=== PATIENT | female | born 2000 | race Caucasian/White ===

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

== ENCOUNTER 2022-06-28 19:24 | Emergency (ER) | payer OTHER, SELFPAY ==
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
[2022-06-28 19:36] VITALS: BP 123/66; PULSE 90; BMI 21.1
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
[2022-06-28] MEDS: Acetaminophen 325 MG TABLET 975 MG PO (20:24)
[2022-06-28] MEDS: Bacitracin Oint 14 GM TUBE 1 APPL TOPICAL (20:25)
[2022-06-28] MEDS: Ibuprofen 600 MG TABLET PO (20:25)
[2022-06-28 21:05] VITALS: BP 125/78; PULSE 85; RESP 18; TEMP 36.8; O2SAT 98
== END 2022-06-28 21:54 | disposition home or self-care (01) ==
PROVIDERS: Emergency Provider Emergency Medicine
DX: S80.11XA Contusion of right lower leg, initial encounter (principal); M25.561 Pain in right knee; V43.62XA Car passenger injured in collision with other type car in traffic accident, initial encounter; Y93.9 Activity, unspecified; Y92.410 Unspecified street and highway as the place of occurrence of the external cause; Y99.9 Unspecified external cause status
CPT/HCPCS: 73562; 73590; 99283; 99284

== ENCOUNTER 2023-05-21 11:34 | Emergency (ER) | payer OTHER, SELFPAY ==
--- NOTE | ~2023-05-21 | XR_ITS ---
EXAMINATION: XR SHOULDER, RIGHT CLINICAL INFORMATION: Pain COMPARISON: None available. TECHNIQUE: Three views of the right shoulder. FINDINGS: Humeral head is well-seated in the glenoid fossa. No acute fracture or dislocation seen. Small amount of calcification seen along the superior aspect of the humeral head region of the supraspinatus tendon suggesting a component of calcific tendinitis. Normal-appearing acromioclavicular joint space. Visualized right ribs and chest unremarkable. XR/XR shoulder RT min 2V IMPRESSION: No acute fracture or dislocation. Small amount of calcification along the superior aspect of the humeral head suggesting calcific tendinitis.
--- NOTE | ~2023-05-21 | XR_ITS ---
EXAMINATION: PORTABLE CHEST 1 VIEW CLINICAL INFORMATION: clavicle hit bar. pain. fracture?. COMPARISON: No recent pertinent prior studies are available for comparison. TECHNIQUE: Portable frontal view of the chest was obtained. FINDINGS: The lungs are well expanded. No focal infiltrate, effusion, edema, or pneumothorax. Cardiac and mediastinal silhouettes are within normal limits for technique. No acute bony abnormality seen. XR/XR chest 1V IMPRESSION: No evidence of acute disease.
[2023-05-21 11:56] VITALS: BP 120/70; PULSE 81; RESP 16; TEMP 36.6; O2SAT 96; BMI 32.9
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
[2023-05-21 15:57] VITALS: BP 130/79; PULSE 74; RESP 16; TEMP 37.2; O2SAT 99
[2023-05-21] MEDS: Ketorolac Tromethamine 30 MG/ML VIAL IM (15:57)
== END 2023-05-21 16:00 | disposition home or self-care (01) ==
PROVIDERS: Emergency Provider Student in an Organized Health Care Education/Training Program
DX: M25.511 Pain in right shoulder (principal); R07.89 Other chest pain; Z79.899 Other long term (current) drug therapy
CPT/HCPCS: 71045; 73030; 96372; 99284; J1885

== ENCOUNTER 2023-05-31 13:50 | Outpatient (AMB) | payer OTHER, SELFPAY ==
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
[2023-05-31 13:58] VITALS: BMI 32.9
== END 2023-05-31 14:11 | disposition home or self-care (01) ==
PROVIDERS: Visit Provider Orthopaedic Surgery
DX: M25.511 Pain in right shoulder (principal)
CPT/HCPCS: 99202

== ENCOUNTER → 2023-05-31 13:50 | Outpatient (BNVA) | payer OTHER, SELFPAY | PROVIDERS: Visit Provider Orthopaedic Surgery | DX: M25.511 Pain in right shoulder (principal) | CPT/HCPCS: 99202 ==

== ENCOUNTER 2025-03-06 18:03 | Emergency (ER) | payer OTHER, SELFPAY ==
--- NOTE | ~2025-03-06 | XR_ITS ---
CLINICAL HISTORY: left knee pain Three views of the left knee. COMPARISON: None provided. FINDINGS: Moderate suprapatellar joint effusion. Joint spaces are maintained. Visualized portions of the distal femur, patella, and proximal tibia and fibula appear intact. IMPRESSION: 1. Moderate left suprapatellar joint effusion. This document has been electronically signed by: Gurwinder Muñoz MD on 03/06/2025 18:45:15
--- NOTE | ~2025-03-06 | MR_ITS ---
CLINICAL HISTORY: injury left knee, ACL tear MRI left knee without contrast Comparison: None provided Findings: Full-thickness tear of the ACL noted with retraction. Large joint effusion is also identified. Heterogeneous fluid noted adjacent to the PCL. Quadriceps and patellar tendons intact without tear. Patellar cartilage and retinacula are unremarkable. Complex tear posterior horn medial meniscus. Abnormal signal noted both horns of lateral meniscus. Question degenerative versus minimal tear. No acute bony signal abnormality. Impression: Full-thickness retracted tear of the ACL Complex tear posterior horn medial meniscus Question degenerative signal versus tear of lateral meniscus This document has been electronically signed by: Alexei Leong MD on 03/06/2025 21:17:53
--- NOTE | ~2025-03-06 | CT_ITS ---
CLINICAL HISTORY: s p knee dislocation, R O l popliteal a. Dissecti CT angiogram left leg with contrast Multiplanar reconstructions and 3D processing Comparison: None provided Findings: Imaging begins in the proximal thigh. Visualized superficial femoral artery is patent. Left popliteal artery is also patent. Proximal trifurcation vessels patent in upper calf. Mid and distal trifurcation vessels are not opacified. This may be due to contrast timing issue or vessel injury. Moderate knee joint effusion is noted. No acute bony abnormality identified. Impression: Study limited to mid thigh through ankle SFA and popliteal artery patent without abnormality Trifurcation vessels patent proximally in upper calf Mid and distal trifurcation vessels are unopacified This document has been electronically signed by: Alexei Leong MD on 03/06/2025 23:19:57
[2025-03-06 18:08] VITALS: BP 132/57; PULSE 92; RESP 16; TEMP 36.4; O2SAT 96; BMI 34.5
--- NOTE | 2025-03-06 18:13 | ED_ITS ---
HPI - General Adult General Chief complaint: Extremity Injury, Lower Stated complaint: ? torn ACL Time Seen by Provider: 03/06/25 19:57 Source: patient Mode of arrival: ambulatory Limitations: no limitations History of Present Illness ED Provider: DR. Alba HPI narrative: 24-year-old female came in for evaluation of left knee injury last night, patient was wrestling with her friends when she twisted her left knee patient felt a sudden onset of severe left knee pain heard the pop and she fell down, patient confirmed that she felt the knee was dislocated then was reduced spontaneously, patient is unable to bear weight on her left knee. Related Data Previous Rx's ?Medication ?Instructions ?Recorded acetaminophen 325 mg capsule 650 mg (2 x 325 mg) PO Q6 H PRN 05/21/23 (Tylenol) pain #30 caps ibuprofen 600 mg tablet 600 mg PO Q6H PRN pain #45 t abs 05/21/23 acetaminophen 500 mg tablet 500 mg PO Q6H PRN pain #20 tabs 03/06/25 ibuprofen 800 mg tablet 800 mg PO Q8H PRN pain #20 t abs 03/06/25 tramadol 50 mg tablet 50 mg PO BID PRN pain #8 tab s 03/06/25 Allergies Allergy/AdvReac Type Severity Reaction Status Date / Time No Known Allergies Allergy Verified 03/06/25 18:11 Review of Systems 2 Review of Systems: All other systems are reviewed and are negative Constitutional: Reports as per HPI and Reports no additional constitutional complaints Eyes: Reports as per HPI and Reports no additional eye complaints Reports system reviewed and no additional complaints, except as documented Cardiovascular: Reports as per HPI and Reports no additional cardiovascular complaints Respiratory: Reports as per HPI and Reports no additional respiratory complaints Gastrointestinal: Reports as per HPI and Reports no additional gastrointestinal complaints Genitourinary: Reports no additional female genitourinary complaints Musculoskeletal: Reports no additional musculoskeletal complaints Skin/Breast: Reports system reviewed and no additional complaints, except as docu Psychiatric: Reports no additional psychiatric complaints Endocrine: Reports no additional endocrine complaints Hematologic/Lymphatic: Reports no additional hematologic/lymphatic complaints Allergic/Immunologic: Reports no additional allergic/immunologic complaints Reports system reviewed and no additional complaints, except as documented and Reports Abnormal speech present [facility] Family History Family History Mother No problems noted. Father No problems noted. Son No problems noted. Sister No problems noted. Sister No problems noted. Brother No problems noted. Brother No problems noted. Brother No problems noted. Brother No problems noted. Social History Social History Patient Tobacco Use Status: Never used Tobacco Smoked in Last 30 Days: No Use of substances other than those prescribed or required for medical reasons: No Advance Directives: No Advance Directives Information Provided: No Do you have a plan to hurt others: No Plan Patient : No Physical Exam ED Vital Signs: Vital Signs - 24 hr 03/06/25 18:08 03/06/25 20:13 03/06/25 22:00 Temperature 97.6 F 98.5 F 97.8 F Pulse Rate 92 84 77 Respiratory Rate 16 16 16 Blood Pressure 132/57 L 104/61 131/86 Pulse Oximetry 96 100 98 Oxygen Delivery Method Room Air Room Air Room Air 03/07/25 00:28 03/07/25 00:30 Temperature 98.7 F 98.7 F Pulse Rate 81 81 Respiratory Rate 16 16 Blood Pressure 114/76 114/76 Pulse Oximetry 97 97 Oxygen Delivery Method Room Air Room Air BMI result Body Mass Index 34.5 Vital signs have been reviewed and appear to be correct. Blood pressure elevated. Heart rate normal. Respiratory rate normal. Temperature normal. Oxygen saturation normal. Appearance: Alert. Oriented X3. No acute distress. Head: Normal external exam. Normocephalic. Atraumatic. No Telles signs noted. No raccoon eyes noted Eyes: PERRLA. EOMI. Conjunctiva and sclera normal. Eyelids normal. ENT: TM's Normal. Pharynx normal. Uvula midline. Moist mucous membranes. No trismus noted. No drooling noted. No muffled voice noted. Neck: Normal inspection. Neck supple. FROM. No adenopathy. Thyroid Normal. No meningeal signs. No neck mass noted. CVS: Normal heart rate and rhythm. Heart sound normal. No murmurs noted. Pulses normal throughout. Respiratory: No respiratory distress. Painless inspiration. Breath sounds normal. No wheezes/rales/rhonchi noted. Chest nontender. No accessory muscle usage noted or decreased air movement noted. Abdomen: Soft and nontender. Bowel sounds normal in all 4 quadrants. No distention noted. No organomegaly noted. No visible injury noted. Back: No CVA tenderness. Full range of motion noted. Skin: Skin warm and dry. Normal skin color. Normal skin turgor. No rashes/lesions/lacerations noted. Extremities: Left knee exam: Unstable anterior drawer test, +left popliteal artery, + left PT/DP, sensation is intact to the knee and distal left leg, severe pain around the knee with mild swelling. Neuro: Oriented X 3. Cranial nerve exam: II-XII are grossly intact No motor deficit. No sensory deficit. Reflexes normal. Course Course Course Narrative: RME: 24-year-old female presents to ED for left knee pain since last night. Patient heard a pop in her left knee cyst in her not being able to bear weight on left knee. Positive for knee tenderness on palpation. X-ray ordered Reevaluation(s) Reevaluation #1: Left knee injury. Concern of ACL injury patient will get MRI of the left knee. Possible left knee dislocation which raised the concern of left popliteal artery dissection patient will get left lower extremity angiogram. Case signed out to Dr. Cheek Time: 21:02 Medications Administered Discontinued Medications Generic Name Dose Route Start Last Admin Trade Name Freq PRN Reason Stop Dose Admin Ibuprofen 800 mg 03/06/25 19:53 03/06/25 21:16 Ibuprofen 800 Mg Tablet PO 03/06/25 19:54 800 mg ONCE ONE Administration Iohexol 95 ml 03/06/25 22:22 03/06/25 22:23 Iohexol 350 Mg/Ml 100 Ml Infus..Btl IV 03/06/25 22:23 95 ml ONCE ONE Administration Medical Decision Making Medical Decision Making [facility] Narrative: I received sign-out from my colleague Dr. Alba - patient already has a knee brace and crutches - CT angiogram of the left leg is limited from the mid thigh through ankle. SFA and popliteal artery patent without abnormality, mid and distal trifurcation vessels are unopacified - MRI of the left knee shows a full-thickness retracted tear of the ACL in a complex tear posterior horn medial meniscus, question degenerative signal versus tear of lateral meniscus - I discussed with the patient that it is very likely that she will need surgery. Patient will be discharged home and she can follow-up with orthopedics referral has been placed - a prescription for ibuprofen and tramadol will be sent to the patient's pharmacy. I discussed with the patient the risks of using narcotics. Differential Diagnosis Differential Diagnoses: The differential diagnosis associated with the presentation includes (Left knee dislocation, left knee fracture, ligamentous injury, lower extremity vascular injury.) Admission/Observation Consideration of admission/observation: Escalation of care including admission/observation considered Lab Data MDM Lab Attestation statement: I reviewed the patient's lab results. 03/06/25 21:23 Labs: Lab Results 03/06/25 Range/Units 21:23 Sodium 141 (135-145) mmol/L Potassium 4.4 (3.3-5.1) mmol/L Chloride 106 (96-108) mmol/L Carbon Dioxide 27 (22-29) mmol/L Anion Gap 12 (12-20) BUN 14 (9-16) mg/dL Creatinine 0.68 (0.5-1.4) mg/dL Estim Creat Clear Calc 157.4 Estimated GFR > 60 Random Glucose 90 (60-115) mg/dL Calcium 9.0 (8.4-10.2) mg/dL Beta HCG, Quant < 2 mIU/mL Independent Interpretation I performed an independent interpretation of an: CT Scan and MRI Radiology Impression Discussion of test interpretation with radiology: I have reviewed the radiologist's reading. Radiologist Impression: Imaging begins in the proximal thigh. Visualized superficial femoral artery is patent. Left popliteal artery is also patent. Proximal trifurcation vessels patent in upper calf. Mid and distal trifurcation vessels are not opacified. This may be due to contrast timing issue or vessel injury. Moderate knee joint effusion is noted. No acute bony abnormality identified. Impression: Study limited to mid thigh through ankle SFA and popliteal artery patent without abnormality Trifurcation vessels patent proximally in upper calf Mid and distal trifurcation vessels are unopacified MRI: Full-thickness tear of the ACL noted with retraction. Large joint effusion is also identified. Heterogeneous fluid noted adjacent to the PCL. Quadriceps and patellar tendons intact without tear. Patellar cartilage and retinacula are unremarkable. Complex tear posterior horn medial meniscus. Abnormal signal noted both horns of lateral meniscus. Question degenerative versus minimal tear. No acute bony signal abnormality. Impression: Full-thickness retracted tear of the ACL Complex tear posterior horn medial meniscus Question degenerative signal versus tear of lateral meniscus Critical Care Time Critical Care Time Critical Care Time: Yes Total Critical Care Time: 35 Attestation: I have personally provided critical care time. Time includes review of lab data, radiology results, discussion with consultants, and monitoring for potential decompensation. Intervention performed as documented. Discharge Plan Discharge Clinical Impression: Injury of knee, left, Complete tear of anterior cruciate ligament of left knee, Acute medial meniscal tear Patient Disposition: Home, Self-Care Instructions: Crutch Instructions (ED) Additional Instructions: Please follow-up with your primary care physician tomorrow. If you have any worsening or new symptoms, please return to the emergency room or call 911 Prescriptions: New tramadol 50 mg tablet 50 mg PO BID PRN (Reason: pain) Qty: 8 0RF ibuprofen 800 mg tablet 800 mg PO Q8H PRN (Reason: pain) Qty: 20 0RF acetaminophen 500 mg tablet 500 mg PO Q6H PRN (Reason: pain) Qty: 20 0RF No Action ibuprofen 600 mg tablet 600 mg PO Q6H PRN (Reason: pain) Qty: 45 0RF acetaminophen [Tylenol] 325 mg capsule 650 mg PO Q6H PRN (Reason: pain) Qty: 30 0RF Referrals: Emeka Juan MD [Physician, Orthopedics] Interventions: ED Discharge Assessment Last Done: 03/07/25 00:30 Discharge Date/Time: 03/07/25 00:30 Print Language: Cymraes
[2025-03-06 20:13] VITALS: BP 104/61; PULSE 84; RESP 16; TEMP 36.9; O2SAT 100
[2025-03-06 21:48] LABS: Anion Gap 12 (12-20); Blood Urea Nitrogen 14 mg/dL (9-16); Calcium 9.0 mg/dL (8.4-10.2); Carbon Dioxide 27 mmol/L (22-29); Chloride 106 mmol/L (96-108); Creatinine Clr Calc Pharmacy 157.4; Estimated Glomerular Filt Rate > 60; Potassium 4.4 mmol/L (3.3-5.1); Sodium 141 mmol/L (135-145)
[2025-03-06 22:00] VITALS: BP 131/86; PULSE 77; RESP 16; TEMP 36.6; O2SAT 98
[2025-03-06] MEDS: iohexoL 350 MG/ML 100 ML INFUS..BTL 95 ML IV (22:23)
[2025-03-07 00:28] VITALS: BP 114/76; PULSE 81; RESP 16; TEMP 37.1; O2SAT 97
--- NOTE | 2025-03-07 00:29 | PC.NURSE ---
Knee immobilizer applied to the left knee. Pt tolerated well. Crutch training provided with effective teach back demonsration.
[2025-03-07 00:30] VITALS: BP 114/76; PULSE 81; RESP 16; TEMP 37.1; O2SAT 97
== END 2025-03-07 00:30 | disposition home or self-care (01) ==
PROVIDERS: Emergency Medicine; Emergency Provider Emergency Medicine; PCP Internal Medicine
DX: S83.512A Sprain of anterior cruciate ligament of left knee, initial encounter (principal); S83.242A Other tear of medial meniscus, current injury, left knee, initial encounter; M25.562 Pain in left knee; X50.1XXA Overexertion from prolonged static or awkward postures, initial encounter; X50.3XXA Overexertion from repetitive movements, initial encounter; Y93.9 Activity, unspecified; Y92.9 Unspecified place or not applicable; Y99.8 Other external cause status
CPT/HCPCS: 36415; 73564; 73706; 73721; 80048; 84702; 99284; Q9967

== ENCOUNTER → 2025-03-06 18:12 | Outpatient (BNV) | payer OTHER, SELFPAY | PROVIDERS: Visit Provider Radiology Diagnostic Radiology | DX: S83.512A Sprain of anterior cruciate ligament of left knee, initial encounter (principal); M25.462 Effusion, left knee | CPT/HCPCS: 73564; 73706; 73721 ==

== ENCOUNTER 2025-03-21 13:06 | Outpatient (AMB) | payer OTHER, SELFPAY ==
--- OUTSIDE RECORDS SUMMARY | 2025-03-21 13:08 | XMS_ITS | Encounter Summary ---
Author Organization [facility] Address [address] [place] [id number] Phone Care Team Providers Care Chest Painting Leader Name Role Phone Naye Bull NP Primary Care Provider [phone] Encounter Details Date Type Department Care Team (Late st Contact Info) Description 06/20/[address] [facility] Family Medicine [address] [place] [address] Family Medicine, Physician [address] [place] [address] Social History Tobacco Use Types Packs/Day Years Used Date Smoking Tobacco: Never Assessed Comments Unknown Sex and Gender Information Value Date Recorded Sex Assigned at Not on file Legal Sex Female 4:46 PM EDT Gender Identity Not on file Sexual Orientation Not on file documented as of this encounter Plan of Treatment Not on file documented as of this encounter Visit Diagnoses Not on filedocumented in this encounter Care Teams Chest Painting Leader Relationship Specialty Start Date End Date Naye Bull NP PCP - General 04/14/17 08/16/23 documented as of this encounter
--- OUTSIDE RECORDS SUMMARY | 2025-03-21 13:09 | XMS_ITS | Clinical Summary ---
Author Organization [facility] ity Address [address] [place] [address] Care Team Providers Care Mass Communications Instructor Name Role Phone Karla Bond MD Primary Care Provider [phone] Allergies No known active allergies Medications drospirenone-et hinyl estradioL (OCELLA,JOANN,Y ASMIN) 3-0.03 mg per tablet Take 1 tablet by mouth 1 (one) time each day. 08/31/2023 Active hydrOXYzine pamoate (VISTARIL) 25 mg capsule Take 1 Capsule by mouth 4 times daily as needed for Anxiety. 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 Immunizations Name Administration Dates Next Due DTaP (Infanrix) 6wks to less than 7yo ,04/19/2004,01/21/2003,12/02,2002 JUgW-HGV-SLV (Pentacel) 2mo to less than 5yo 04/19/2004,01/21/2003,2002,09/16 H1N1 Inj Preservative Free 12/16/2009,10/15/2009 HPV 9-valent (Gardisil) 9yo to less than 46yo 09/30/2015 HPV, Quadrivalent 09/29/2014,09/25/2013 Hepatitis B Pediatric (Enger ix B; Recombivax HB) to less than 20 yo 04/28/2003,01/21/2003,2002 IPV Inactivated polio (Ipol) 6wks and older 05/09/2007,04/28/2003,2002,09/16 Influenza trivalent, 0.5mL, preservative free (Fluarix; FluLaval; Fluzone) ages 6mo and older (Afluria) 3 years and older 09/30/2015,09/29/2014 Influenza trivalent, with pr eservative (Fluzone; Afluria) 6mo and older 09/25/2013,06/03/2009,08/15/2008,06/03 Influenza, live, intranasal, trivalent (FluMist) 2yo to less than 50yo 06/07/2010 MMR, measles mumps and rubel la Live (Priorix; M-M-R II) 12mo and older 09/17/2003 MMRV, measles mumps rubella and varicella live (Proquad) 4yo to less than 7yo 05/09/2007 Meningococcal MCV4P 09/25/2013 Pneumococcal Conjugate Vacci ne, 7 Valent 10/13/2004,01/21/2003,2002,09/16 Tdap Tetanus diptheria acell ular pertussis (Boostrix; Adacel) 7yo and older 12/24/2020,09/25/2013 Varicella live (Varivax) 12m o and older 02/22/2021,09/17/2003 Surgical History Surgery Date Site/Laterality Comments OTHER SURGICAL HISTORY 02/23/2023 PROCEDURE: ME PLASTIC SURGERY SS; COMMENT: [facility] Medical History Medical History Date Comments Headache DX:Headache; COM MENT: saw optho,normal exam on 06/12/14, neg CT scan 10/2009 RAD (reactive airway disease) DX :RAD (reactive airway disease) Mononucleosis DX:Mononucleosis ; COMMENT: History of per labs 10/21 Depression DX:Depression Family History Medical History Relation Name Comments Asthma Father Diabetes Maternal Grandfather Migraines Mother Breast cancer Neg Hx Cervical cancer Neg Hx Ovarian cancer Neg Hx Uterine cancer Neg Hx Relation Name Status Comments Father Alive Maternal Grandfather Alive Maternal Grandmother Alive Mother Alive Paternal Grandfather Paternal Grandmother Alive Social History Tobacco Use Types Packs/Day Years Used Date Smoking Tobacco: Never Smokeless Tobacco: Never Alcohol Use Standard Drinks/Week Comments No 0 (1 standard drink = 0.6 oz pur e alcohol) Comments Unknown Sex and Gender Information Value Date Recorded Sex Assigned at Not on file Legal Sex Female 1:18 PM EST Gender Identity Not on file Sexual Orientation Not on file Obstetrics History Last Filed Vital Signs Vital Sign Reading Time Taken Comments Blood Pressure 100/60 10/09/2023 11:03 AM EST Pulse 98 10/09/2023 11:03 AM EST Temperature - - Respiratory Rate - - Oxygen Saturation - - Inhaled Oxygen Concentration - - Weight 119 kg (263 lb) 10/09/2023 11:03 AM EST Height 167.6 cm (5' 6 ) 10/09/2023 11:03 AM EST Body Mass Index 42.45 10/09/2023 11:03 AM EST Plan of Treatment Health Maintenance Due Date Last Done Comments Meningococcal B Vaccine (1 of 2 - Standard) 2018 Cholesterol Screening (Lipid Panel) 08/02/2022 Depression Screening 08/02/2022 Social Influencers of Health Screening 08/02/2022 Gonorrhea/Chlamydia Screening 09/28/2022 09/28/2021 Cervical Cancer Screening: Pap Smear 2023 COVID-19 Vaccine ( season) 2024 04/07/2021, 03/15/2021 Influenza Vaccine (#1) 2025 6, 09/29/2014, 09/25/2013, Additional history exists DTaP,Tdap,and Td Vaccines (8 - Td or Tdap) 12/24/2030 12/24/2020, 09/25/2013, 05/09/2007, Additional history exists Hepatitis B Vaccines Completed 04/28/2003, 01/21/2003, 2002 HIB Vaccines Completed 04/19/2004, 01/03, 2002, Additional history exists Pneumococcal Vaccine: Pediatrics (0 to 5 Years) and At-Risk Patients (6 to 49 Years) Completed 10/13/2004, 01/21/2003, 2002, Additional history exists IPV Vaccines Completed 05/09/2007, 04/04, 04/28/2003, Additional history exists MMR Vaccines Completed 05/09/2007, 09/17/2003 Meningococcal ACWY Vaccine Aged Out 09/25/2013 N o longer eligible based on patient's age to complete this topic HPV Vaccines Completed 09/30/2015, 09/05, 09/25/2013 HIV Screening Completed 08/14/2020 Hepatitis C Screening Completed 08/14/2020 Varicella Vaccines Completed 02/22/2021, 0 05/09/2007, 09/17/2003 Hepatitis A Vaccines Aged Out No long er eligible based on patient's age to complete this topic RSV Immunization Patients Under 20 months Aged Out No longer eligible based on patient's age to complete this topic Procedures Procedure Name Priority Date/Time Associated Diagnosis Comments GONORRHEA/CHLAMYDIA SCRREENING Routine 09/28/2021 HEPATITIS C SCREENING Routine 08/14/2020 HIV SCREENING Routine 08/14/2020 from Last 3 Months or Most Recently Relevant to Health Maintenance Results * Gonorrhea/Chlamydia Screening (09/28/2021) Gonorrhea/Chla mydia Screening abstracted [facility] Provider HEALTH MAINTENANCE Final Result * HIV Screening (08/14/2020) HIV Screening abstracted [facility] Provider HEALTH MAINTENANCE Final Result * Hepatitis C Screening (08/14/2020) Hepatitis C Screening abstracted Historical Provider HEALTH MAINTENANCE Final Result from Last 3 Months or Most Recently Relevant to Health Maintenance Care Teams Mass Communications Instructor Relationship Specialty Start Date End Date Karla Bond MD [address] [place] [id number] PCP - General Internal Medicine 10/22/20
--- NOTE | 2025-03-21 13:13 | MHC.OFFVIS ---
Intake Visit Reasons: FC: LT knee inj, DOI Intake Note: Devendra 24 yr old female presents today for a [facility] ED follow up visit for her left knee pain. As per ED note from 03/05/25, patient was wrestling with her friends when she twisted her left knee patient felt a sudden onset of severe left knee pain heard the pop and she fell down, patient confirmed that she felt the knee was dislocated then was reduced spontaneously, patient is unable to bear weight on her left knee. Patient was given a knee immobilizer a pair of crutches to help with ambulation. Currently patient reports her pain is located at the anterior and posterior aspect of knee. Allergies No Known Allergies Allergy (Verified 03/21/25 13:22) Medication List - Last Reconciled 03/21/25 by Elisha Zamarripa PA-C acetaminophen 500 mg PO Q6H PRN ibuprofen 800 mg PO Q8H PRN HPI HPI FC: LT knee inj, DOI : Details: 24-year-old female presents to the office today for an injury she sustained to her left knee on 03/05/2025. At the time of her injury she twisted her knee and felt a pop. She had difficulty weight-bearing. She was seen in the emergency room where x-rays and MRI were obtained. The MRI was significant for a complete ACL tear and meniscus tear. She was given a knee immobilizer and referred to our office for ortho eval. [facility], [facility] Surgical History (Updated 03/21/25 @ 13:21 by YANELI Cohen) History of liposuction Family History Mother No problems noted. Father No problems noted. Son No problems noted. Sister No problems noted. Sister No problems noted. Brother No problems noted. Brother No problems noted. Brother No problems noted. Brother No problems noted. Social History Patient Tobacco Use Status: Never used Tobacco Review of Systems Const All systems reviewed & are unremarkable except as noted in HPI and below Physical Exam Const General: cooperative and no acute distress Orientation/consciousness: patient oriented x3 Resp Effort & Inspection: normal respiratory effort and able to speak in complete sentences Cardio Peripheral pulses: Peripheral pulses 2+ throughout Neuro General: patient oriented x3 Extrem Other: Left knee is normal to inspection. She has full range of motion 0-90 degrees. She can activate the quad however there is some weakness. She does have increased laxity with the left compared to contralateral side. Assessment & Plan Assessment & Plan (1) Acute medial meniscal tear: Code(s): S83.249A - Other tear of medial meniscus, current injury, unspecified knee, initial encounter Category: Medical (2) Complete tear of anterior cruciate ligament of left knee: Code(s): S83.512A - Sprain of anterior cruciate ligament of left knee, initial encounter Category: Medical Plan I discussed the extent of the injury to the patient and options available which include surgical intervention. I explained the procedure in detail along with the length of recovery and rehab course. I explained the risk, benefits and alternatives. Risk including, but not limited to infection, blood clots, bleeding, ongoing pain and stiffness or rerupture of the tendon. I explained to the patient the difference between allograft and autograft. Given her age and activity level she would like to proceed. I answered all their questions and with their understanding they have consented to move forward with Left knee acl reconstruction with autograft with Dr Juan. The patient will be booked accordingly. She was fit for a hinged knee brace in the office today. Coding Level of Care Code New Pt Level 4 (82209) Complex EM visit Add On G2211 Diagnoses Acute medial meniscal tear S83.249A Complete tear of anterior cruciate ligament of left knee S83.512A
== END 2025-03-21 13:58 | disposition home or self-care (01) ==
LOC: HO.HOS 13:06
PROVIDERS: PCP Internal Medicine; Visit Provider Physician Assistant
DX: S83.242A Other tear of medial meniscus, current injury, left knee, initial encounter (principal); S83.512A Sprain of anterior cruciate ligament of left knee, initial encounter
CPT/HCPCS: 99204

== ENCOUNTER → 2025-03-21 13:06 | Outpatient (BNVA) | payer OTHER, SELFPAY | PROVIDERS: PCP Internal Medicine; Visit Provider Physician Assistant | DX: S83.242A Other tear of medial meniscus, current injury, left knee, initial encounter (principal); S83.512A Sprain of anterior cruciate ligament of left knee, initial encounter; Y93.72 Activity, wrestling; Y93.69 Activity, other involving other sports and athletics played as a team or group; Y92.9 Unspecified place or not applicable; Y99.9 Unspecified external cause status | CPT/HCPCS: 99202 ==